=== PATIENT | female | born 1945 | race Caucasian/White ===

== ENCOUNTER 2023-06-27 14:50 | Outpatient (REF) | payer MEDICARE, BC, SELFPAY ==
--- OUTSIDE RECORDS SUMMARY | 2023-06-27 14:52 | XMS_ITS | CCD ---
Author Name Unknown Address [address] [place] [address] [phone] Organization Unknown Address [address] [place] [address] [phone] Care Team Providers Care Obstetrical Tech Name Role Phone SONI LEVY Attending Physician [phone] Vital Signs Unknown or Not Available. Allergies Allergy Code Allergy Type Reaction Status No Known Allergies 0 No known allergies Active Procedures Unknown or Not Available. History of Immunizations Unknown or Not Available. Problems Unknown or Not Available. Results [facility] - Jake ect Date/Time: 06/19/2022 10:22 Test Name Code Test Result Test Units Test Ref Rang e Tier- 50011-2 PRE-OP N/A SARS COV2 RNA: 25735-9 NEGATIVE N/A REFERENCE RANGE: NEGAT Active Medications Unknown or Not Available. Medications Administered During Visit Unknown or Not Available. Encounters Encounter Diagnosis Diagnosis Code Start Date Pre-surgery testing [id number] 06/19/2022 Social History Smoking Status Code Start Date End Date Never smoker [id number] Patient Decision Aids Unknown or Not Available. Discharge Instructions You were admitted to [facility] on 06/19/2022 17:18 with a principal diagnosis of Encounter for preprocedural laboratory examination You had the following tests done:POOL COVID RHEONIX* You were discharged from [facility] on 06/19/2022 17:18 Should you have any questions prior to discharge, please contact a member of your healthcare team. If you have left the hospital and have any questions, please contact your primary care physician. Chief Complaint and Reason For Visit Unknown or Not Available. Function Status Unknown or Not Available. Plan of Care Unknown or Not Available. Referral/Transition of Care Unknown or Not Available.
--- OUTSIDE RECORDS SUMMARY | 2023-06-27 14:52 | XMS_ITS | CCD ---
Author Name Unknown Address [address] [place] [address] [phone] Organization Unknown Address [address] [place] [address] [phone] Care Team Providers Care Rn Chemical Dependency Name Role Phone TANIYA LÓPEZ Attending Physician [phone] TANIYA LÓPEZ Rounding (Secondary) Physician [phone] Vital Signs Unknown or Not Available. Allergies Allergy Code Allergy Type Reaction Status No Known Allergies 0 No known allergies Active Procedures Unknown or Not Available. History of Immunizations Unknown or Not Available. Problems Unknown or Not Available. Results COMPREHENSIVE METABOLIC PANE L (CMP) - Collect Date/Time: 12/17/2021 12:00 Test Name Code Test Result Test Units Test Ref Rang e GLUCOSE 2345-7 91 mg/dL L=70 H=116 BUN 3094-0 10 mg/dL L=6 H=25 CREATININE 2160-0 0.73 mg/dL L=0.51 H=0.95 SODIUM SERUM 2951-2 139 mmol/L L=136 H=145 POTASSIUM SERUM 2823-3 3.9 mmol/L L=3.4 H=5 .2 CHLORIDE SERUM 2075-0 102 mmol/L L=96 H=110 CARBON DIOXIDE (CO2) 2028-9 25 mmol/L L=22 H=34 ANION GAP 16013-6 11.7 mmol/L CALCIUM SERUM 60554-4 9.5 mg/dL L=8.2 H=10. 2 BILIRUBIN TOTAL 1975-2 0.7 mg/dL L=0.0 H=1 .3 ALK. PHOS. 6768-6 77 U/L L=46 H=116 SGOT (AST) 1920-8 27 U/L L=15 H=37 SGPT (ALT) 1742-6 32 U/L L=12 H=78 TOTAL PROTEIN 2885-2 7.4 gm/dL L=6.0 H=8.0 ALBUMIN 1751-7 4.4 gm/dL L=3.4 H=5.0 AGE 76 years eGFR (non-Afr.Amer.) 57463-1 78 mL/min eGFR (Afr-[place]orese) 67712-6 94 mL/min CBC W/ DIFFERENTIAL* - [facility] ct Date/Time: 12/17/2021 12:00 Test Name Code Test Result Test Units Test Ref Rang e WBC 6690-2 7.67 th/cmm L=5.00 H=10.00 NEUT % 68.8 % L=40.0 H=80.0 LYMPH % 19.4 % L=10.0 H=50.0 MONO % 24249-2 8.9 % L=2.0 H=12.0 EOS % 1.8 % L=0.0 H=8.0 BASO % 0.8 % L=0.0 H=3.0 IG % 2514-8 0.3 % L=0.0 H=1.1 NRBC % 38523-1 0.0 % L=0.0 H=0.0 NEUT abs count 751-8 5.3 th/cmm L=1.6 H=8. 4 LYMPH abs count 731-0 1.5 th/cmm L=1.5 H=4 .0 MONO abs count 742-7 0.7 th/cmm L=0.2 H=1. 0 EOS abs count 711-2 0.1 th/cmm L=0.0 H=0.5 BASO abs count 704-7 0.1 th/cmm L=0.0 H=0. 2 IG abs count 24723-5 0.0 th/cmm L=0.0 H=0.1 NRBC abs count 32732-4 0.0 mil/cmm L=0.0 H=0. 0 RBC 789-8 4.44 mil/cmm L=3.90 H=5.40 HEMOGLOBIN 718-7 13.6 gm/dL L=12.0 H=16.0 HEMATOCRIT 4544-3 40 % L=37 H=47 MCV 787-2 91 fL L=82 H=92 MCH 785-6 30.6 pg L=27.0 H=31.0 MCHC 786-4 33.7 % L=32.0 H=36.0 RDW-SD 788-0 43.3 fL L=39.0 H=49.0 PLATELET COUNT 777-3 269 th/cmm L=150 H=45 0 Active Medications Unknown or Not Available. Medications Administered During Visit Unknown or Not Available. Encounters Encounter Diagnosis Diagnosis Code Start Date Encounter for follow-up exam ination after completed treatment for malignant neoplasm Z08 12/17/2021 Social History Smoking Status Code Start Date End Date Never smoker [id number] Patient Decision Aids Unknown or Not Available. Discharge Instructions You were admitted to [facility] on 12/17/2021 10:43 with a principal diagnosis of Encounter for follow-up examination after completed treatment for malignant neoplasm You had the following tests done:CBC W/ DIFFERENTIAL*COMPREHENSIVE METABOLIC PANEL (CMP) You were discharged from [facility] on 12/17/2021 00:00 Should you have any questions prior to [...]
--- OUTSIDE RECORDS SUMMARY | 2023-06-27 14:52 | XMS_ITS | CCD ---
Author Name Unknown Address [address] [place] [address] [phone] Organization Unknown Address [address] [place] [address] [phone] Care Team Providers Care Insemination Worker Name Role Phone RIMMA MCFARLANE Attending Physician [phone] Vital Signs Vital Sign Value Unit Date/Time Recent/Initial ? BP Systolic 122 mmHg 06/22/2022 09:32 Initial VS BP Diastolic 78 mmHg 06/22/2022 09:32 Initia l VS Respiratory Rate 12 bpm 06/22/2022 09:32 In itial VS Heart Rate 67 bpm 06/22/2022 09:32 Initial VS O2 % BldC Oximetry 96 % 06/22/2022 09:32 Initial VS BP Systolic 126 mmHg 06/22/2022 10:17 Most Re cent VS BP Diastolic 79 mmHg 06/22/2022 10:17 Most R ecent VS Respiratory Rate 12 bpm 06/22/2022 10:[address] Recent VS Heart Rate 69 bpm 06/22/2022 10:17 Most Rec ent VS O2 % BldC Oximetry 98 % 06/22/2022 10:17 Most Recent VS Allergies Allergy Code Allergy Type Reaction Status No Known Allergies 0 No known allergies Active Procedures Procedure Code Procedure Type Date Colsc Flx w/[place] [address] CPT 06/22/2022 History of Immunizations Unknown or Not Available. Problems Unknown or Not Available. Results Unknown or Not Available. Active Medications Unknown or Not Available. Medications Administered During Visit Unknown or Not Available. Encounters Encounter Diagnosis Diagnosis Code Start Date Encounter for screening for malignant neoplasm o f colon Z1211 06/22/2022 Social History Smoking Status Code Start Date End Date Never smoker [id number] Patient Decision Aids Unknown or Not Available. Discharge Instructions You were admitted to [facility] on 06/22/2022 07:49 with a principal diagnosis of Encounter for screening for malignant neoplasm of colon You had the following procedures done:Colsc Flx w/Rmvl Of Tumor Polyp Lesion Snare Tq You were discharged from [facility] on 06/22/2022 10:19 Should you have any questions prior to [...]
--- OUTSIDE RECORDS SUMMARY | 2023-06-27 14:52 | XMS_ITS | CCD ---
Author Name Unknown Address [address] [place] [address] [phone] Organization Unknown Address [address] [place] [address] [phone] Care Team Providers Care Peoplesoft Taleo Manager Name Role Phone GORGE BRENNAN Attending Physician [phone] GORGE BRENNAN Rounding (Secondary) Physician [phone] Vital Signs Unknown or Not Available. Allergies [...] Encounters Encounter Diagnosis Diagnosis Code Start Date Other fracture of left lower leg, subsequent encounter for closed fracture with routine healing [id number] 11/10/2021 Social History Smoking Status Code Start Date End Date Never smoker [id number] Patient Decision Aids Unknown or Not Available. Discharge Instructions You were admitted to [facility] on 11/10/2021 15:04 with a principal diagnosis of Other fracture of left lower leg, subsequent encounter for closed fracture with routine healing You were discharged from [facility] on 11/10/2021 00:00 Should you have any questions prior [...]
--- OUTSIDE RECORDS SUMMARY | 2023-06-27 14:52 | XMS_ITS | CCD ---
Author Name Unknown Address [address] [place] [address] [phone] Organization Unknown Address [address] [place] [address] [phone] Care Team Providers Care Scheduling Representative Name Role Phone TANIYA LÓPEZ Attending Physician [phone] TANIYA LÓPEZ Rounding (Secondary) Physician [phone] Vital Signs Unknown or Not Available. Allergies [...] Encounters Encounter Diagnosis Diagnosis Code Start Date Follow-up visit [id number] 12/14/2022 Social History Smoking Status Code Start Date End Date Never smoker [id number] Patient Decision Aids Unknown or Not Available. Discharge Instructions You were admitted to [facility] on 12/14/2022 07:28 with a principal diagnosis of Encounter for follow-up examination after completed treatment for malignant neoplasm You were discharged from [facility] on 12/14/2022 13:54 Should you have any questions prior to [...]
--- OUTSIDE RECORDS SUMMARY | 2023-06-27 14:52 | XMS_ITS | CCD ---
Author Name Unknown Address [address] [place] [address] [phone] Organization Unknown Address [address] [place] [address] [phone] Care Team Providers Care Nanofabrication Specialist Name Role Phone GORGE BRENNAN Attending Physician [phone] GORGE BRENNAN Rounding (Secondary) Physician [phone] Vital Signs Unknown or Not Available. Allergies [...] Date Other fracture of left lower leg, initial encounter for closed fracture [id number] 09/30/2021 Social History Smoking Status Code Start Date End Date Never smoker [id number] Patient Decision Aids Unknown or Not Available. Discharge Instructions You were admitted to [facility] on 09/30/2021 10:31 with a principal diagnosis of Other fracture of left lower leg, initial encounter for closed fracture You were discharged from [facility] on 09/30/2021 00:00 Should you have any questions prior [...]
--- OUTSIDE RECORDS SUMMARY | 2023-06-27 14:53 | XMS_ITS | CCD ---
Author Name Unknown Address [address] [place] [address] [phone] Organization Unknown Address [address] [place] [address] [phone] Care Team Providers Care Street Light Repairer Helper Name Role Phone SONI LEVY MD Attending Physician [phone] Vital Signs Unknown or Not Available. Allergies Allergy Code Allergy Type Reaction Status No Known Allergies 0 No known allergies Active Procedures Unknown or Not Available. History of Immunizations Unknown or Not Available. Problems Unknown or Not Available. Results [facility] - [place] ct Date/Time: 02/25/2021 11:15 Test Name Code Test Result Test Units Test Ref Rang e SOURCE= Anterior nasal N/A Tier- EXPOSURE N/A SARS COV2 RNA: 91425-2 NEGATIVE N/A REFERENCE RANGE: NEGAT Active Medications Unknown or Not Available. Medications Administered During Visit Unknown or Not Available. Encounters Encounter Diagnosis Diagnosis Code Start Date Exposure to SARS-CoV-2 [id number] Social History Smoking Status Code Start Date End Date Never smoker [id number] Patient Decision Aids Unknown or Not Available. Discharge Instructions You were admitted to [facility] on 02/25/2021 23:16 with a principal diagnosis of Contact with and (suspected) exposure to COVID-19 You had the following tests done:POOL STANLEYX You were discharged from [facility] on 02/25/2021 23:16 Should you have any questions prior to [...]
[2023-06-27 22:17] LABS: HCT 39.5 % (36.0-46.0); HGB 12.9 g/dL (11.2-15.7); MCH 30.1 pg (27.0-33.0); MCHC 32.7 % (32.0-36.0); MCV 92 fL (80-95); MPV 11.7 fL (8.0-11.0); Platelet Count 230 10^3/uL (130-400); RBC 4.29 10^6/uL (3.93-5.22); RDW 13.1 % (11.7-14.6); WBC 8.07 10^3/uL (4.4-10.8)
[2023-06-27 22:30] LABS: ALT 29 U/L (14-59); AST 29 U/L (15-37); Albumin 4.2 g/dL (3.4-5.0); Alkaline Phosphatase 61 U/L (46-116); Anion Gap 7.3 mmol/L (3-11); BUN 11 mg/dL (7-18); Bilirubin, Total 0.6 mg/dL (0.2-1.0); CO2 28.7 mmol/L (21.0-32.0); CREATININE 0.8 mg/dL (0.55-1.02); Calcium 9.5 mg/dL (8.5-10.1); Calculated LDL 148 mg/dL (<100); Chloride 105 mmol/L (98-107); Cholesterol 269 mg/dL (<200); Estimated GFR 76.79 (mL/min/1.73m2); Glucose 101 mg/dL (74-106); HDL Cholesterol 107 mg/dL (40-60); Potassium 4.1 mmol/L (3.5-5.1); Sodium 141 mmol/L (136-145); Total Protein 7.4 g/dL (6.4-8.2); Triglyceride 70 mg/dL (<150)
[2023-06-27 22:51] LABS: Vitamin D 25 Total 57.4 ng/mL (30-100)
== END 2023-06-27 14:51 | disposition home or self-care (01) ==
LOC: NCHCN 14:50
PROVIDERS: PCP Internal Medicine; Visit Provider Internal Medicine
DX: M81.0 Age-related osteoporosis without current pathological fracture (principal)
CPT/HCPCS: 80053; 80061; 82306; 85027